=== PATIENT | male | born 2000 | race Caucasian/White ===

== ENCOUNTER 2021-03-09 11:46 | Emergency (ER) | payer SELFPAY ==
[2021-03-09 11:56] VITALS: BP 108/59; PULSE 73; RESP 18; TEMP 37.2; O2SAT 95; BMI 32.1
--- NOTE | 2021-03-09 12:15 | CT_ITS ---
WS: [id number] CT ABDOMEN AND PELVIS WITH CONTRAST HISTORY: abdominal pain TECHNIQUE: Imaging performed of the abdomen and pelvis with IV contrast. Single phase imaging of the abdomen. Coronal and sagittal reformats are submitted. All CT scans at [facility] use at least one of these dose optimization techniques: automated exposure control; mA and/or kV adjustment per patient size (includes targeted exams where dose is matched to clinical indication); or iterativ e reconstruction. IV CONTRAST: Omnipaque 300; 95 mL IV. Oral contrast: No DLP: 1882.16 mGy.cm COMPARISON: None available. Lower thorax: Lung bases are clear. Heart is normal size. No hiatal hernia. Liver/biliary system: Normal size with no intrahepatic dilatation. Gallbladder: Normally distended gallbladder. 6 mm soft tissue nodule within the lumen of the gallblad rena on the nondependent surface. No pericholecystic fluid. No bile duct dilatation. Pancreas: Normal size pancreas and pancreatic duct. No adjacent inflammation. Spleen: Normal size spleen. No mass or infarct. Adrenal glands: Normal. Right kidney: Normal. Left kidney: Normal. Aorta: Normal. Lymphadenopathy: None. Free fluid: None. GI tract: Normal appendix. No obstruction. No acute inflammatory changes or mucosal thickening. Abdominal wall: Unremarkable abdominal wall. No hernia. Pelvis: No free fluid or adenopathy within the pelvis. Bones: Unremarkable. CT/CT abdomen pelvis w con* [id number] IMPRESSION: 1. No acute abdominal or pelvic abnormalities. 2. Normally distended gallbladder with a 6 mm soft tissue focus. Probably a po lyp or adherent gallstone. No evidence for acute cholecystitis or bile duct dil atation. 3. Normal appendix.
--- NOTE | 2021-03-09 12:16 | W.ED.ABDPA2 ---
HPI - Abdominal Pain General: Chief Complaint: Abdominal Pain Stated Complaint: ABD PAIN, N/V/D Time Seen by Provider: 03/09/21 12:04 History of Present Illness: HPI narrative: The patient is a 21-year-old male who comes to the ER complaining of abdominal pain. He says he woke this morning at 4 AM with severe diarrhea which would not quit. He then says he went to work and the belly pain started in his upper belly and became worse and worse. He is now nauseous and vomiting and complaining of severe upper abdominal pain. MD elicited complaint: abdominal pain Pain Consistency: constant Location: Epigastric Severity: severe Quality: sharp Radiation: epigastric Migration to: no migration Exacerbating factors: nothing Relieving factors: nothing Associated Symptoms: Reports change in stool character, diarrhea, loose stools, nausea and vomiting Review of Systems General: Reports: 10 or more systems reviewed and unremarkable except in HPI and below Const: Denies: fatigue Eyes: Denies: change in vision, blurry vision or eye redness ENMT: Denies: throat pain, swelling of lips/tongue, ear or mastoid pain or nasal congestion Card: Denies: chest pain, palpitations, irregular heart rhythm, edema, dyspnea on exertion or orthopnea Resp: Denies: dyspnea, productive cough or non-productive cough GI: Reports: abdominal pain, nausea, vomiting, diarrhea and change in stool character : Denies: flank pain, urinary frequency or urinary urgency Musc: Denies: neck pain, back pain, extremity pain, joint pain, joint redness, limited range of motion or muscle weakness Skin/Breast: Denies: rash, pruritus, erythema, skin pain or skin tenderness Neuro: Denies: headache(s), numbness in extremities, weakness in extremities, sensory changes, difficulty walking, dizziness, confusion or Slurred speech present Psych: Denies: anxiety or depression Endo: Denies: polyuria All/Imm: Denies: urticaria, throat swelling or tongue swelling Physical Exam Const: COMMON NORMALS: average body habitus, patient oriented x3, no limitations, alert and well nourished GENERAL APPEARANCE: cooperative, well kempt, well developed and anxious ORIENTATION/CONSCIOUSNESS: Yes awake, Yes oriented to person, Yes oriented to place and Yes oriented to time OTHER: appears in pain grabbing upper belly. HENMT: COMMON NORMALS: normocephalic, external ears normal and Normal external nose present HEAD & SCALP: normal to inspection and normocephalic NOSE: Normal external nose present EXTERNAL EAR: Yes external ears normal MOUTH: Normal oral and palatal mucosa present THROAT: posterior oropharynx normal Eye: COMMON NORMALS: Equal, round and reactive pupils present and EOMs intact bilaterally GENERAL EYE: appearance normal, both eyes and all related structures PUPIL: Yes Equal, round and reactive pupils present Neck/C-Spine: COMMON NORMALS: full ROM, no lymphadenopathy, no meningeal signs and no JVD GENERAL: Yes normal visual inspection Lymph: LYMPHATIC: no lymphadenopathy noted Chest: COMMONS NORMALS: normal inspection of the chest and normal palpation of entire chest wall Resp: COMMON NORMALS: normal respiratory effort, No retractions, No use of accessory muscles, clear to auscultation bilaterally and percussion normal EFFORT & INSPECTION: Yes able to speak in complete sentences AUSCULTATION: clear to auscultation bilaterally PERCUSSION: percussion normal Cardio: COMMON NORMALS: no JVD, regular rate, regular rhythm, S1 normal heart sound present, S2 normal heart sound present and Peripheral pulses 2+ throughout RATE: regular rate RHYTHM: regular rhythm HEART SOUNDS: S1 normal heart sound present and S2 normal heart sound present PERIPHERAL PULSES: Peripheral pulses 2+ throughout GI: COMMON NORMALS: Normal to inspection, nondistended, normoactive bowel sounds present, Soft to palpation, non-tender and no masses INSPECTION: Yes normal to inspection PALPATION: Yes Soft to palpation : COMMON NORMALS: Yes no CVA tenderness BLADDER/KIDNEY EXAM: Yes no CVA tenderness Back/Pelvis: COMMON NORMALS: no CVA tenderness, thoracic and lumbar spine normal to inspection, no thoracic nor lumbar tenderness and thoraco-lumbar ROM normal Extremity: COMMON NORMALS: normal to inspection, full ROM, capillary refill normal, no joint enlargement and no pedal edema GENERAL: Yes normal exam except as noted Neuro: COMMON NORMALS: patient oriented x3, CN's II-XII intact bilaterally, moves all extremities, no focal motor deficits, no sensory deficits noted and gait normal SENSORIUM/ORIENTATION: Yes alert, Yes oriented to person, Yes oriented to place and Yes oriented to time MENINGEAL SIGNS: Yes no meningeal signs Psych: COMMON NORMALS: mental status grossly normal, Normal thought process present, cooperative, normal affect and speech normal APPEARANCE: Yes well kempt ATTITUDE: Yes calm SPEECH: Yes normal speech THOUGHT PROCESS: Normal thought process present Skin: COMMON NORMALS: no rashes or lesions noted GENERAL SKIN EXAM: no rashes or lesions noted Course Vital Signs: Vital signs: Vital Signs Temperature 98.9 F 03/09/21 11:56 Pulse Rate 63 03/09/21 14:19 Respiratory Rate 16 03/09/21 14:19 Blood Pressure 98/40 03/09/21 14:19 Pulse Oximetry 99 03/09/21 14:19 MDM - Abdominal Pain MDM Narrative: Medical decision making narrative: The patient came in nauseous and vomiting complaining of epigastric abdominal pain. His symptoms were relieved by GI cocktail completely. Recommended he see a GI doctor and family practice next week. Placed case management referral to help him achieve those goals. ER with worsening symptoms. Also did discuss his ultrasound that likely has a polyp or stone in his gallbladder. These are not likely the cause of his symptoms today however should be discussed with primary care physician next week. Lab Data: Labs: Lab Results 03/09/21 03/09/21 Range/Units 12:42 12:42 Urine Color Yellow (Yellow) Urine Appearance Clear (CLEAR) Urine pH 7 (5-7) Ur Specific Gravit y 1.010 (1.005-1.030) Urine Protein Neg (Negative) Urine Glucose (UA) Norm (Normal) Urine Ketones 1+ H (Negative) Urine Blood Neg (Negative) Urine Nitrate Negative (Negative) Urine Bilirubin Neg (Negative) Urine Urobilinogen Norm (Negative) mg/dL Ur Leukocyte Estephanie ase Negative (Negative) Urine Opiates Scre en Negative (Negative) ng/mL Ur Barbiturates Sc reen Negative (Negative) ng/mL Ur Phencyclidine S crn Negative (Negative) ng/mL Ur Amphetamines Sc reen Negative (Negative) ng/mL U Benzodiazepines Scrn Negative (Negative) ng/mL Urine Cocaine Scre en Negative (Negative) ng/mL U Marijuana (THC) Screen Positive H (Negative) ng/mL Discharge Plan Discharge Patient Disposition: Home Clinical Impression: Gastritis Condition: Stable Prescriptions: New omeprazole 40 mg capsule,delayed release(DR/EC) 40 mg PO DAILY Qty: 30 RF: 0 Discharge Orders: Discharge ED (Routine); Ordered 03/09/21 Ordered By: Og Ronquillo Discharge Diet: Advance as tolerated Discharge Activity: Resume usual activity Patient Instructions: Gastritis (ED), Opioid Safety Activity Restrictions/Additional Instructions: You have gastritis. Please take the omeprazole daily for a month and stay away from spicy foods, caffeine, and nicotine as these increase your stomach acid in your belly. Also eat bland foods for the next week or so as your stomach rebuilds its mucous lining to protect itself. Please follow-up with your primary care physician next week to monitor improvement of your symptoms. I have also placed a referral to a cnc mill programmer to help you get a scope to check for ulcers. Return to the ER with worsening symptoms otherwise follow-up with your primary care physician and the belly doctor. Our correctional case records supervisor should be calling you today or tomorrow to help with scheduling the appointments Coding Level of Care Code ED Extension Service Specialist In Charge for Chg Fwd Exam Comprehensive
[2021-03-09] MEDS: iohexol 300 mg/mL 100 mL Btl IV (12:48)
[2021-03-09 12:50] LABS: Add Urine Microscopic? NO; Charge for UA Resulting for Rev
[2021-03-09] MEDS: sodium chloride 0.9% 1,000 ML 999 ML IV (13:04)
[2021-03-09] MEDS: ondansetron 2 mg/ML SDV 2 mL 4 MG IVP (13:04)
[2021-03-09] MEDS: ketorolac 30 mg/mL INJ 15 MG IVP (13:04)
[2021-03-09 13:07] VITALS: BP 119/61; PULSE 63; RESP 19; O2SAT 98
[2021-03-09 13:07] LABS: Urine Appearance Clear (CLEAR); Urine Color Yellow (Yellow)
[2021-03-09 13:08] LABS: Bilirubin Urine Neg (Negative); Blood Urine Neg (Negative); Glucose Urine UA Norm (Normal); Ketones Urine 1+ (Negative); Leukocyte Esterase Urine Negative (Negative); Nitrate Urine Negative (Negative); Protein Urine Neg (Negative); Urobilinogen Urine Norm (Negative); pH Urine 7 (5-7)
[2021-03-09 13:13] LABS: Amphetamines Screen Urine Negative (Negative); Barbiturates Screen Urine Negative (Negative); Benzodiazepines Screen Urine Negative (Negative); Cocaine Screen Urine Negative (Negative); Opiate Screen Urine Negative (Negative); PCP Screen Urine Negative (Negative); THC Screen Urine Positive (Negative)
[2021-03-09] MEDS: lidocaine 2% viscous 15 ML, aluminum-mag hydrox-simethicon 30 ML, sucralfate oral liq 1 GM PO (14:15)
[2021-03-09] MEDS: pantoprazole 40 mg SDV IVP (14:18)
[2021-03-09 14:19] VITALS: BP 98/40; PULSE 63; RESP 16; O2SAT 99
[2021-03-09 15:17] VITALS: BP 119/54; PULSE 72; RESP 16; O2SAT 97
--- NOTE | 2021-03-09 15:32 | DCPLANNER ---
manager credit collections had message to schedule a follow up appointment for patient with general surgery for gastritis and a history of ulcers. manager credit collections emailed patients information to both [facility] and [facility]. Patients information will be printed and reviewed. Clinic will call patient with appointment information.
--- NOTE | 2021-03-24 15:28 | DCPLANNER ---
Patient had a follow up appointment scheduled for 03.24.[address] Dimas at [facility] General Surgery - patient did attend appointment.
== END 2021-03-09 15:22 | disposition home or self-care (01) ==
PROVIDERS: Emergency Provider Family Medicine
DX: K29.70 Gastritis, unspecified, without bleeding (principal)
CPT/HCPCS: 74177; 80306; 81003; 96361; 96374; 96375; 99284; C9113; J1885; J2405; J7030; Q9967

== ENCOUNTER 2021-04-29 07:07 | Outpatient (CLI) | payer SELFPAY ==
--- NOTE | 2021-04-29 07:15 | US_ITS ---
WS: [id number] ULTRASOUND ABDOMEN LIMITED CLINICAL INFORMATION: R10.9 - Unspecified abdominal pain COMPARISON: None. FINDINGS: Liver Size: Mild hepatomegaly Craniocaudal length: 16.8 cm. Echogenicity: Normal. Surface nodularity: None. Mass (size and location): None. Bile ducts Intrahepatic ducts: Normal. Common bile duct diameter: 0.4 cm. Gallbladder Ovoid solid appearing lesion adhered to the gallbladder wall measuring 7.6 x 1.2 x 9.4 mm likely repr esents gallbladder polyp or sludge ball. No shadowing. No significant vascularity. No shadowing saji lithiasis. Gallbladder wall thickening: None. Pericholecystic fluid: None. Sonographic Marie sign: Absent. Pancreas Not well seen Right kidney: Normal. Hydronephrosis: None. Size: 11.1 cm x 5.0 cm x 4.2 cm. Abdominal aorta and IVC Visualized portions are normal. Ascites: None. US/US gall bladder [id number] IMPRESSION: 1. Mild hepatomegaly. 2. Ovoid solid appearing lesion adhered to the gallbladder wall measuring 7.6 x 1.2 x 9.4 mm likely represents gallbladder polyp or sludge ball. No shadowing . No significant vascularity. 3. Gallbladder is otherwise unremarkable. Normal common bile duct. 4. No hydronephrosis in right kidney.
== END 2021-04-29 07:08 | disposition home or self-care (01) ==
LOC: RAD 07:08
PROVIDERS: Visit Provider Surgery
DX: R10.9 Unspecified abdominal pain (principal); R16.0 Hepatomegaly, not elsewhere classified
CPT/HCPCS: 76705

== ENCOUNTER → 2021-12-15 14:20 | Outpatient (BNVA) | payer SELFPAY | PROVIDERS: Visit Provider Nurse Practitioner Family | DX: R00.2 Palpitations (principal); R07.9 Chest pain, unspecified; R10.9 Unspecified abdominal pain; K21.9 Gastro-esophageal reflux disease without esophagitis; Z72.89 Other problems related to lifestyle | CPT/HCPCS: 71046; 80053; 80061; 84443 ==